=== PATIENT | male | born 1965 | race Caucasian/White ===

== ENCOUNTER 2021-12-19 00:51 | Day surgery (SDC) | payer OTHER, SELFPAY ==
[2021-12-18 08:19] VITALS: BMI 31.4
--- NOTE | 2021-12-18 08:28 | PC.NURSE ---
Report to the Outpatient Waiting Room, entrance under the green pavilion located off [facility], at time 1100 on date 12/19/21. OR Time: 1300. - You and your visitor will be asked a series of questions to screen for COVID 19 for your protection. - A mask is required within the hospital. One visitor will be allowed to accompany the patient into the hospital. Patients visitor will be instructed to remain with patient at all times or leave the building. We will allow the visitor to come back to the postoperative area when patient is ready. Preoperative COVID Testing Requirements: No COVID Test needed if: (proof is required; if not received patient will have Rapid Test prior to entry) - Patient has received COVID Vaccine at least 14 days prior to procedure date or - Patient has positive COVID test result within last 90 days of surgery date. COVID Test needed if above criteria is not met Patients may have clear liquids (water, carbonated beverages, clear teas, apple juice) until 3 hours prior to surgery with a maximum of 20 ounces. - No food from midnight until time of surgery Take the following medications with a SIP of water the morning of surgery: NONE Medications to discontinue per physician: VITAMINS/SUPPLEMENTS Date to take last dose: NONE UNTIL AFTER SURGERY Please no make-up, nail egyptian, hairspray, perfume, deodorant, or body powder the day of surgery. No jewelry (including any body piercings) or valuables the day of surgery, leave them at home. Please take a shower or bath the night before, or the morning of, surgery with an antibacterial soap. Wear comfortable, loose fitting clothing. HIBICLENS SHOWER - Jewelry must be removed prior to entering the operating room. Rings and piercings that are not removed may be cut off. - The hospital will not accept responsibility for valuables. - Please leave all valuables, including medications, at home the day of surgery. If you are going home after surgery, a licensed dumpcart driver must drive you home. - NO public transportation without another adult. - We recommend that an adult stay with you for 24 hours following discharge. - We also recommend that you do not drive, make important decision, drink alcoholic beverages, or take any drugs that were not prescribed by your health care provider for at least 24 hours after your discharge time. Follow any additional instructions given to you from your surgeon. Telephone instructions given to JESSI LOPEZ and asked if any additional questions and then verbalized understanding. Patient advised to call surgeon office or pre surgery nurse liaison [phone] if any additional questions.
[2021-12-19] VITALS (7 sets, daily range): BP systolic 86–132; BP diastolic 54–84; PULSE 59–79; RESP 12–18; TEMP 36.3–36.6; O2SAT 90–100
[2021-12-19] MEDS: ACETAMINOPHEN 500 MG TABLET 1000 MG PO (11:36)
[2021-12-19] MEDS: KETOROLAC 15 MG/ML VIAL (*BKC) IV PUSH (12:00)
[2021-12-19] MEDS: LACTATED RINGERS 1,000 ML 30 ML IV CONT ×2 (12:00→14:48)
--- NOTE | 2021-12-19 12:48 | WPDANESEPPF ---
Anes - Initial Pre Proc Eval Procedure: Operation Date: 12/19/21 13:00 Proposed Procedures p Right Inguinal Hernia Repair - Trenton Moreau MD Date/Time: 12/19/21 12:48 Surgeon: Trenton Moreau MD Pre Op Diagnosis: Right Ing Hernia Patient Data Age: 56 Gender: M Height: 1.8 m Weight: 98.5 kg Last Vital Signs Temp 36.3 C L 12/19/21 12:09 Pulse 79 12/19/21 12:09 Resp 16 12/19/21 12:09 BP 120/83 12/19/21 12:09 Pulse Ox 100 12/19/21 12:09 Allergies Allergy/AdvReac Type Severity Reaction Status Date / Time No Known Allergies Allergy Verified 12/19/21 12:08 Home Medications Medication Instructions Recorded Confirmed Type multivitamin 1 tablet PO DAILY 12/09/21 12/19/21 History magnesium chloride 71.5 mg 71.5 mg PO DAILY 12/16/21 12/19/21 History (magnesium chloride) tablet,delayed release Patient hx anesthesia problems: none Family hx anesthesia problems: none Results Review: All pre-operative results and documents have been reviewed as part of the pre-operative evaluation. [facility] Past Medical History Medical History (Updated 12/19/21 @ 12:48 by Castillo Shin MD) Diverticulitis Dysrhythmia, cardiac Unknown family medical history Patient is adopted Surgical History Surgical History (Updated 12/19/21 @ 12:49 by Castillo Shin MD) H/O hernia repair History of colon resection History of creation of ostomy Social History Social History Smoking status: Never smoker Alcohol intake: current Alcohol use details: 2/MONTH Substance use: never Substance use type: does not use Living arrangements: with family Additional occupation/education comments: SELF EMPLOYED Spiritual care concerns: No Anes - Eval Final PreProcedure Day of Procedure 12/19/21 12:48 Patient weight: obese Heart: regular rate and rhythm Lungs: clear to auscultation Airway: Mallampati scale class II Neurological: alert and oriented Last oral intake: >/= 8 hours ASA classification: II Emergent: no Anesthetic plan: proceed Anesthesia type and monitoring: general GIVS and standard monitoring Results Review: All pre-operative results and documents have been reviewed as part of the pre-operative evaluation. Informed Consent: The patient's anesthetic plan and its attendant risks and benefits were discussed with the patient/family/POA. Questions were solicited and answers provided to the satisfaction of the patient/family/POA.
--- NOTE | 2021-12-19 12:57 | WPDHPUPDATE1 ---
History and Physical Update Update Date/Time: 12/19/21 12:57 History and Physical has been reviewed, including an updated exam of the patient. There are NO changes in the patient's condition. Risks, benefits, and alternatives have been discussed and questions answered. Patient agrees to proceed with procedure.
[2021-12-19] MEDS: ceFAZolin 2 GM/D5W 50 ML 2 GM/50 ML BAG IVPB (13:07)
--- NOTE | 2021-12-19 14:51 | P.OP_ITS ---
Procedure Note - Detailed Date of Procedure 12/19/21 Pre-op Diagnosis Right Ing Hernia Post-op Diagnosis Same Procedure Performed Right inguinal hernia repair with large PerFix plug a light Surgeon Trenton Moreau MD Podiatric Medicine Doctor [place] BUSTOS Anesthesia General and Local (0.25% Marcaine with epinephrine) Indications Patient had noticed a bulge in the right groin which would cause discomfort. He has a history of a previous left inguinal hernia. He was seen in the office and found to have a reducible right inguinal hernia. He is taken to surgery now for repair Findings Showed an indirect right inguinal hernia that had small bowel within the hernia. No direct hernia was noted. Description of Procedure The patient was taken to surgery and IV sedation was administered. Prep and drape was carried out. The proposed incision was marked on the skin. Local anesthetic was infiltrated into the skin and the deeper subcutaneous tissues. Incision was made dissection was carried down through subcutaneous and through Rogers's fascia. We dissected down to the external oblique aponeurosis and exposed it. The external ring was exposed as well. Local was infiltrated deep to the external oblique aponeurosis in the area of the spermatic cord and inguinal canal contents. The aponeurosis was opened laterally and extended medially through the external ring. Care was taken to avoid injury to the ilioinguinal nerve which was left attached to the cord. We then mobilized the cord medially on around a Manzanola drain. The cord was further mobilized back to the internal ring. The hernia was not immediately obvious. We did a fair amount of dissection the cord and then eventually found the hernia sac fairly near the internal ring. Once it was dissected however it was a fairly wide- based hernia and had small bowel in the hernia sac. There was a lot of cremasteric fiber of the cord that was divided with the cautery. We dissected out the hernia sac and dissected back to a high dissection. The sac was not entered. It was dunked into the retroperitoneum. A large PerFix plug light was then placed in the defect. The edges were sutured to the transversalis fascia with interrupted 3 0 Vicryl suture. Then 3-0 Vicryl suture were used to partially close the hernia defect. The patch was then cut to the appropriate size and placed over the inguinal canal floor. The lateral leaves passed beyond the cord. The 1st piece of Xaracoll was then placed over the patch. We closed the external oblique aponeurosis with interrupted 3-0 Vicryl suture. The 2nd piece of Xaracoll was then placed over the external oblique aponeurosis. Rogers's fascia was closed with interrupted 3-0 Vicryl suture. The last pieces Xaracoll was placed in the subcutaneous. The skin was loosely approximated with 4-0 Vicryl subcuticular interrupted skin suture. The skin was finally closed with a running 4-0 Monocryl skin suture. The wound was dressed with Exofin surgical adhesive. The patient was awakened and taken to outpatient surgery in good condition. Sponge and needle counts were correct x2. Implants Large PerFix plug light with patch, Xaracoll Estimated Blood Loss -5 Drains No Packing No Pathology None sent Complications No immediate complications Condition Stable Disposition Same day
== END 2021-12-19 16:43 | disposition home or self-care (01) ==
PROVIDERS: PCP Physician Assistant; Visit Provider Surgery
PROC: (CPT 49505; principal; 2021-12-19 13:00)
DX: K40.90 Unilateral inguinal hernia, without obstruction or gangrene, not specified as recurrent (principal); Z90.49 Acquired absence of other specified parts of digestive tract; E66.9 Obesity, unspecified; Z68.30 Body mass index [BMI] 30.0-30.9, adult
CPT/HCPCS: 49505; A9270; C1781; J0690; J1100; J1885; J2250; J2405; J2704; J7120

== ENCOUNTER 2022-06-25 09:51 | Outpatient (CLI) | payer OTHER, SELFPAY ==
--- NOTE | ~2022-06-25 | CT_ITS ---
EXAMINATION: CT abdomen pelvis wo con DATE: 06/25/2022 10:04 INDICATION: Right lower quadrant ventral hernia TECHNIQUE: Computed tomography (CT) of the abdomen and pelvis was performed without intravenous contr ast. The dose-length product was 995.27 mGy-cm. Automated exposure control and iterative reconstructi on technique were employed. COMPARISON: CT dated 03/27/2010 FINDINGS: There is bibasilar atelectasis. Heart size normal. No significant pleural or pericardial ef fusion. There is a right lower inguinal hernia containing nonobstructed small bowel. Gallstones. There is a 1.3 cm exophytic left renal cyst posteriorly. There are nonobstructing bilater al renal stones. The liver, spleen, adrenal glands are unremarkable. There is a periumbilical fat-con taining hernia. Nonobstructive bowel gas pattern. No abnormal pelvic masses or fluid collections. There is mild osteo arthritis of the hips. Mild lower thoracic and lumbar spondylosis. IMPRESSION: 1. Right inguinal hernia containing nonobstructed small bowel. 2: Periumbilical hernia containing fat. 3: Cholelithiasis. 4: Nonobstructing bilateral nephrolithiasis. Reviewed, dictated and finalized at location B.
== END 2022-06-25 09:52 ==
LOC: MICIMG 09:52
PROVIDERS: PCP Physician Assistant; Visit Provider Surgery
DX: K43.9 Ventral hernia without obstruction or gangrene (principal); K42.9 Umbilical hernia without obstruction or gangrene; K80.20 Calculus of gallbladder without cholecystitis without obstruction; N20.0 Calculus of kidney
CPT/HCPCS: 74176

== ENCOUNTER 2022-08-27 01:28 | Day surgery (SDC) | payer OTHER, SELFPAY ==
[2022-08-18 10:29] VITALS: BMI 30.2
--- NOTE | 2022-08-18 10:32 | PC.NURSE ---
Report to the Outpatient Waiting Room, entrance under the green pavilion located off [facility], at time 1030 on date 08/27/22. Planned Procedure Time: 1230. Time changes happen often and if your time is changed the preop area will call you the afternoon before. - You and your visitor will be asked to self-screen and do not enter if you have any COVID symptoms. - Only one visitor is requested with a max of two and NO children visitors are allowed at this time. - The patient visitor may be requested to leave or wait in car when not with patient due to distancing restrictions. - A mask is optional within the hospital. Patients may have clear liquids (water, carbonated beverages, clear teas, apple juice) until 3 hours prior to surgery with a maximum of 20 ounces. - No food from midnight until time of surgery Take the following medications with a SIP of water the morning of surgery: METOPROLOL Medications to discontinue per physician: VITAMINS/SUPPLEMENTS Date to take last dose: 08/23/22 Please no make-up, nail romansh, hairspray, perfume, deodorant, or body powder the day of surgery. No jewelry (including any body piercings) or valuables the day of surgery, leave them at home. Please take a shower or bath the night before, or the morning of, surgery with an antibacterial soap (HIBICLENS). Wear comfortable, loose fitting clothing. - Jewelry must be removed prior to entering the operating room. Rings and piercings that are not removed may be cut off. - The hospital will not accept responsibility for valuables. - Please leave all valuables, including medications, at home the day of surgery. If you are going home after surgery, a licensed cdl truck driver must drive you home. - NO public transportation without another adult if you receive anesthesia. - We recommend that an adult stay with you for 24 hours following discharge. - We also recommend that you do not drive, make important decision, drink alcoholic beverages, or take any drugs that were not prescribed by your health care provider for at least 24 hours after your discharge time. Follow any additional instructions given to you from your surgeon. If you or anyone in your household have experienced Covid symptoms in the past week, please notify your surgeon or the nurse liaison at the phone number below for possible testing. Telephone instructions given to PT - JESSI LOPEZ and asked if any additional questions and then verbalized understanding. Patient advised to call surgeon office or pre surgery nurse liaison [phone] if any additional questions.
--- NOTE | 2022-08-26 13:33 | PM.SD2 ---
Same Day Admit/Disch: HPI History of Present Illness Chief complaint: recurrent inguinal hernia and umbilical hernia Narrative: Raymond Singh is a 57 year old male Who had a right inguinal hernia repaired with plug and patch last November. He developed a recurrent right inguinal bulge. He was seen in the office and found to have a recurrent right inguinal hernia. He was also noted to have an umbilical hernia. After discussion, he is taken to surgery now as an outpatient for repair of his recurrent right inguinal hernia and repair of the umbilical hernia. Both hernias are to be repaired with mesh. [facility] Past Medical History Medical History Diverticulitis Dysrhythmia, cardiac Unknown family medical history Patient is adopted Surgical History Surgical History H/O hernia repair History of colon resection History of creation of ostomy History of inguinal hernia repair right side 12/19/21 Social History Social History Smoking status: Never smoker Alcohol intake: current Drinks per week: 2 Alcohol use details: 2/MONTH Substance use: never Substance use type: does not use Living arrangements: with family Additional occupation/education comments: SELF EMPLOYED Spiritual care concerns: No Same Day Admit/Disch: Med Pre-admit Medications Home Medications Medication Instructions Recorded Confirmed Type multivitamin 1 tablet PO DAILY 12/09/21 08/18/22 History magnesium chloride 71.5 mg 71.5 mg PO DAILY 12/16/21 08/18/22 History (magnesium chloride) tablet,delayed release (Slow-Mag) metoprolol succinate 25 mg 25 mg PO DAILY 06/19/22 08/18/22 History tablet,extended release 24 hr hydrocodone 5 mg-acetaminophen 325 1 - 2 tablet PO Q6H PRN pain #15 08/27/22 Rx mg tablet tabs ketorolac 10 mg tablet 10 mg PO Q6H 4 days #16 tabs 08/27/22 Rx Exam Const: General: comfortable, no acute distress, alert and awake HENMT: Head: normocephalic and atraumatic Mouth: Yes Normal oral and palatal mucosa present Eyes: Conjunctivae: conjunctivae normal Pupils: Equal, round and reactive pupils present EOM: EOMs intact bilaterally Neck: Neck: normal visual inspection, no lymphadenopathy and nontender Resp: Effort & Inspection: normal respiratory effort Auscultation: clear to auscultation bilaterally Cardio: Rate: regular rate Rhythm: regular rhythm Heart sounds: no gallops, no murmurs and no rubs GI: Inspection: non-distended, scar and visible herniation ( Umbilical) GI Palp: Yes Soft to palpation, No Tenderness to palpation present (GI), No Hepatomegaly present, No Splenomegaly present and Yes Hernia present ( small umbilical bulge mostly on the right of the umbilicus. Reducible) : Male General Exam: Yes hernia ( right inguinal bulge just above the previous scar, reducible.) Penis: Yes normal penis Scrotum: scrotum normal Testes: Testes normal Skin: Lesions: no lesions Rashes: no rashes Neuro: General: no focal motor deficits and CN's II-XI intact bilaterally Cranial nerves: Yes Equal, round and reactive pupils present, Yes Bilaterally intact EOM present, Yes facial symmetry and Yes Midline tongue present Speech: normal speech Motor exam (neuro): 5/5 motor strength present throughout and Motor abnormalities not present Extrem: General: no clubbing, cyanosis or edema and edema Psych: Affect: normal affect Thought process: Normal thought process present Insight: Good insight present (Psych) DS: Summary Time Spent with Patient Time attestation: Total time spent providing and/or coordinating discharge services: DS: Admitting Diagnosis Discharge Date 08/27/2022 Admitting Diagnosis recurrent right inguinal hernia -reducible. Plan to proceed with repair under anesthesia with mesh. The procedure was discussed including the
[2022-08-27 10:31] VITALS: BP 138/96; PULSE 64; RESP 18; TEMP 36.2; O2SAT 100
--- NOTE | 2022-08-27 10:47 | WPDHPUPDATE1 ---
History and Physical Update Update Date/Time: 08/27/22 10:47 History and Physical has been reviewed, including an updated exam of the patient. There are NO changes in the patient's condition. Risks, benefits, and alternatives have been discussed and questions answered. Patient agrees to proceed with procedure.
[2022-08-27] MEDS: LACTATED RINGERS 1,000 ML 30 ML IV CONT ×2 (11:00→16:45)
[2022-08-27] MEDS: KETOROLAC 15 MG/ML VIAL (*BKC) IV PUSH (11:01)
[2022-08-27] MEDS: ACETAMINOPHEN 500 MG TABLET 1000 MG PO (11:01)
--- NOTE | 2022-08-27 11:59 | WPDANESEPPF ---
Anes - Initial Pre Proc Eval Procedure: Operation Date: 08/27/22 12:30 Proposed Procedures p Repair Recurrent Right Inguinal Hernia Repair, - Trenton Moreau MD s Umbilical Hernia Repair with Mesh - Trenton Moreau MD Date/Time: 08/27/22 11:59 Surgeon: Trenton Moreau MD Pre Op Diagnosis: recurrent inguinal hernia and umbilical hernia Patient Data Age: 57 Gender: M Height: 1.8 m Weight: 99 kg Last Vital Signs Temp 36.2 C L 08/27/22 10:31 Pulse 64 08/27/22 10:31 Resp 18 08/27/22 10:31 BP 138/96 H 08/27/22 10:31 Pulse Ox 100 08/27/22 10:31 O2 Del Method Room Air 08/27/22 10:31 Allergies Allergy/AdvReac Type Severity Reaction Status Date / Time No Known Allergies Allergy Verified 08/27/22 11:07 Home Medications Medication Instructions Recorded Confirmed Type multivitamin 1 tablet PO DAILY 12/09/21 08/18/22 History magnesium chloride 71.5 mg 71.5 mg PO DAILY 12/16/21 08/18/22 History (magnesium chloride) tablet,delayed release (Slow-Mag) metoprolol succinate 25 mg 25 mg PO DAILY 06/19/22 08/18/22 History tablet,extended release 24 hr Patient hx anesthesia problems: none Family hx anesthesia problems: none Results Review: All pre-operative results and documents have been reviewed as part of the pre-operative evaluation. [facility] Past Medical History Medical History Diverticulitis Dysrhythmia, cardiac Unknown family medical history Patient is adopted Surgical History Surgical History H/O hernia repair History of colon resection History of creation of ostomy History of inguinal hernia repair right side 12/19/21 Social History Social History Smoking status: Never smoker Alcohol intake: current Drinks per week: 2 Alcohol use details: 2/MONTH Substance use: never Substance use type: does not use Living arrangements: with family Additional occupation/education comments: SELF EMPLOYED Spiritual care concerns: No Anes - Eval Final PreProcedure Day of Procedure 08/27/22 11:59 Patient weight: obese Heart: regular rate and rhythm Lungs: clear to auscultation Airway: Mallampati scale class II Neurological: alert and oriented Last oral intake: >/= 8 hours ASA classification: II Emergent: no Anesthetic plan: proceed Anesthesia type and monitoring: general GIVS and standard monitoring Results Review: All pre-operative results and documents have been reviewed as part of the pre-operative evaluation. Informed Consent: The patient's anesthetic plan and its attendant risks and benefits were discussed with the patient/family/POA. Questions were solicited and answers provided to the satisfaction of the patient/family/POA.
[2022-08-27] MEDS: ceFAZolin 2 GM/D5W 50 ML 2 GM/50 ML BAG IVPB (13:07)
[2022-08-27] MEDS: LIDO 1%/EPINEPHRINE/PF 1:200,000 30 ML VIAL 60 ML XX (13:52)
[2022-08-27 16:12] VITALS: BP 117/79; PULSE 67; RESP 16; O2SAT 95
--- NOTE | 2022-08-27 16:37 | W.PM.PROC2 ---
Procedure Note - Detailed Date of Procedure 08/27/22 Pre-op Diagnosis recurrent inguinal hernia and umbilical hernia Post-op Diagnosis Other (Recurrent right inguinal hernia, periumbilical incisional hernia) Procedure Performed Repair periumbilical incisional hernia with mesh, repair recurrent right inguinal hernia with PerFix Light plug and patch. Surgeon Trenton Moreau MD Business Objects Report Developer Danielle BUSTOS, Renee BUSTOS Anesthesia General (G IV S), Local (2% lidocaine with epinephrine) and Other (Xaracoll for inguinal hernia) Indications Patient had a right inguinal hernia repair last November. He noticed bulge and some discomfort in the right groin. He was seen in the office and found to have not only a recurrent right inguinal hernia but also bulge in the umbilicus. He also has a long midline scar from previous colon resection in 2008. He is taken to surgery now for repair of the recurrent right inguinal hernia as well as repair of the periumbilical hernia both with mesh. Findings The recurrent right inguinal hernia was an indirect hernia it was a fairly wide defect. There was extremely heavy scarring and anatomy was difficult to delineate. All the previous mesh including the plug was removed. The umbilical hernia actually was in incisional hernia and did not involve the stalk of the umbilicus. This was a small defect as well and was repaired with a 4.[address] underlay mesh patch. Description of Procedure Patient was taken to surgery and anesthesia was introduced. The abdomen as well as the right inguinal region were prepped and draped. We started with the umbilical surgery. The proposed incision was marked along the old scar that ran on the right side of the umbilicus. I marked this area then infiltrated local in the area of the anticipated incision. Incision was made and dissection was carried down through the skin and subcutaneous. We dissected towards the umbilicus and then saw the hernia defect. It was a little more lateral and at this point was evident this was an incisional hernia. I did go ahead and dissect circumferentially around the hernia sac and dissected around the umbilical stalk. I divided the umbilical stalk and then undermined some of the subcutaneous around the hernia defect. I excised some of the hernia sac and then enlarged the hernia slightly so that I could place a finger in the abdomen. Once I did this I was able to check for any additional hernias or other abnormalities that would impede our repair. None were found. I then used a 4.[address] patch. This was placed in the defect. I then placed cranial and caudal transfascial sutures of 0 Ethibond. These were positioned such that they would advance the edges of the hernia towards 1 another once tied. They did have the desired effect. I then removed the strap to the Ventralex ST. I used a [id number] 0 Ethibond suture to close the hernia defect. Each of these stitches also involved bit of mesh. This repair looked satisfactory. I infiltrated additional local all around the repair. I then sutured the umbilical skin back to the fascia with 3-0 Vicryl suture. The skin was loosely approximated with subcuticular interrupted 4-0 Vicryl suture. The skin was finally closed with a running 4-0 Monocryl skin suture. We then quarantine this wound and I turned my attention to the right inguinal scar and recurrent right inguinal hernia. I khushi around the scar in an elliptical fashion. I then infiltrated local in the area of the scar and in the subcutaneous. I excised the old scar and discarded it. We then dissected through the subcutaneous and through Rogers's fascia. I continued this dissection and found some very dense scarring in the area of the external oblique and inguinal canal. I was able to find a plane that I could separate the subcutaneous from the external oblique aponeurosis. None the less it seemed that some of the external oblique aponeurosis
[2022-08-27 16:40] VITALS: BP 118/69; PULSE 64; RESP 20
[2022-08-27 17:10] VITALS: BP 135/87; PULSE 72; RESP 20
[2022-08-27 17:40] VITALS: BP 143/86; PULSE 64; RESP 20
[2022-08-27 18:10] VITALS: BP 143/90; PULSE 70; RESP 20
== END 2022-08-27 18:30 | disposition home or self-care (01) ==
PROVIDERS: PCP Physician Assistant; Visit Provider Surgery
PROC: (CPT 49520; principal; 2022-08-27 12:30)
PROC: (CPT 49520; 2022-08-27 12:30)
DX: K40.91 Unilateral inguinal hernia, without obstruction or gangrene, recurrent (principal); K43.2 Incisional hernia without obstruction or gangrene; I49.9 Cardiac arrhythmia, unspecified; E66.9 Obesity, unspecified; Z68.30 Body mass index [BMI] 30.0-30.9, adult
CPT/HCPCS: 49520; 49560; 49568; 88300; A9270; C1781; J0690; J1885; J2250; J2270; J2405; J2704; J3010; J7120

== ENCOUNTER 2023-06-25 10:09 | Emergency (ER) | payer OTHER, SELFPAY ==
--- NOTE | ~2023-06-25 | CT_ITS ---
EXAMINATION: CT abdomen pelvis w con DATE: 06/25/2023 11:00 INDICATION: Right lower quadrant abdominal pain TECHNIQUE: Computed tomography (CT) of the abdomen and pelvis was performed with 100 mL Omnipaque-350 intravenous contrast. Automated exposure control and iterative reconstruction technique were employe d. The dose-length product was 802.52 mGy-cm. COMPARISON: 06/25/2022 FINDINGS: Dependent and discoid atelectasis in the bilateral lower lobes. Heart size is normal. No pericardial or pleural effusion. Calcified gallstones in the dependent aspect of the otherwise normal gallbladder . Liver, spleen, pancreas, bilateral adrenal glands are normal. Bilateral renal cysts, the largest on the left measuring up to 1.8 cm. 5 x 3 mm at least partially obstructing stone at the right ureterov esicular junction with mild right hydroureteronephrosis. No other evident urolithiasis. Bladder is no rmal. There are few scattered colonic diverticula without adjacent inflammatory change to suggest div erticulitis. Small bowel and appendix are normal. Postoperative change of prior umbilical and right i nguinal hernia repairs. No free intraperitoneal gas or fluid. No pathologically enlarged abdominal or pelvic lymphadenopathy. Severe disc height loss with mild degenerative endplate changes at L5-S1. Mi ld spondylosis more cephalad lumbar and lower thoracic spine. Chronic appearing likely pathologic mil d anterior wedging of T11 and T12. IMPRESSION: 1. At least partially obstructing 5 x 3 mm stone at the right ureterovesicular junction with mild rig ht hydroureteronephrosis. 2. Cholelithiasis. 3. Change of prior umbilical and right inguinal hernia repairs. Reviewed, dictated and finalized at location A. IMPRESSION: 1. At least partially obstructing 5 x 3 mm stone at the right ureterovesicular junction with mild right hydroureteronephrosis. 2. Cholelithiasis. 3. Change of prior umbilical and right inguinal hernia repairs.
[2023-06-25 10:09] VITALS: BP 111/71; PULSE 65; RESP 16; TEMP 36.6; O2SAT 98
[2023-06-25] MEDS: SODIUM CHLORIDE 0.9% IV 1,000 ML 999 ML IV CONT ×2 (10:38→11:33)
[2023-06-25] MEDS: ONDANSETRON INJ 4 MG/2 ML VIAL IV PUSH (10:38)
[2023-06-25] MEDS: fentaNYL CITRATE INJ (*CRX) 100 MCG/2 ML VIAL 50 MCG IV PUSH (10:38)
--- NOTE | 2023-06-25 10:41 | ED.GENADULT ---
HPI - General Adult General Chief complaint: Abdominal Pain Stated complaint: ABD PAIN Time Seen by Provider: 06/25/23 10:18 History of Present Illness HPI narrative: Raymond Singh is a 58 y/o male with PMHx of hernia repair surgeries with partal colon removal, presents today with complaints of right lower abdominal pain with severe pain that started about 1 hour ago. Last BM this morning and was small, reports of nausea/ has not vomiting he last had anything to eat about 12 hours ago. Related Data Home Medications Medication Instructions Recorded Confirmed multivitamin 1 tablet PO DAILY 12/09/21 09/25/22 magnesium chloride 71.5 mg 71.5 mg PO DAILY 12/16/21 09/25/22 (magnesium chloride) tablet,delayed release (Slow-Mag) metoprolol succinate 25 mg 25 mg PO DAILY 06/19/22 09/25/22 tablet,extended release 24 hr Allergies Allergy/AdvReac Type Severity Reaction Status Date / Time No Known Allergies Allergy Verified 09/25/22 09:10 Review of Systems Review of Systems: CONSTITUTIONAL: Denies fever, chills EYES: Denies visual changes, redness, or discharge. ENT: Denies rhinorrhea, congestion, sore throat, or otalgia. CARDIOVASCULAR: Denies chest pain, palpitations, or edema. RESPIRATORY: Denies cough or dyspnea. GASTROINTESTINAL:Complains of severe right lower pain, with nausea, no vomiting, or diarrhea. GENITOURINARY: Denies dysuria or hematuria. SKIN: Denies rash or itching. MUSCULOSKELETAL: Denies back pain, joint pain, or myalgia. NEUROLOGIC: Denies headache, numbness, dizziness, or weakness. PSYCHIATRIC: Denies anxiety or depression. [facility] Past Medical History Medical History Diverticulitis Dysrhythmia, cardiac Unknown family medical history Patient is adopted Surgical History Surgical History H/O hernia repair History of colon resection History of creation of ostomy History of inguinal hernia repair right side 12/19/21 History of inguinal hernia repair recurrent rt ing hernia, rep umb hernia w/ mesh performed 08/27 Social History Social History Smoking status: Never smoker Alcohol intake: current Drinks per week: 2 Alcohol use details: 2/MONTH Substance use: never Substance use type: does not use Living arrangements: with family Occupation/Education: occupation Additional occupation/education comments: SELF EMPLOYED Spiritual care concerns: No Exam Narrative: GENERAL: Diaphoretic, appears uncomfortable, well-nourished, and in no acute distress. HEAD: Normocephalic, atraumatic. EYES: PERRLA and EOMI. ENT: Nares clear, no rhinorrhea or epistaxis. Mucous membranes moist. Oropharynx without tonsillar hypertrophy exudate or other lesions. NECK: Supple. No adenopathy or masses. No carotid bruits or JVD CHEST: Clear to auscultation. No respiratory distress. No wheezes rales or rhonchi HEART: Regular rate and rhythm. No murmur heard. Normal peripheral pulses. ABDOMEN: Soft, painful with palpation to the right lower quadrant, nondistended, hypoactive bowel sounds EXTREMITIES: Normal range of motion. No edema. SKIN: Warm, dry, no rash. NEURO: No focal deficits. Alert and oriented x3. PSYCH: Normal mood and affect. Course Vital Signs Vital signs: Vital Signs Temperature 36.6 C 06/25/23 10:09 Pulse Rate 65 06/25/23 10:09 Respiratory Rate 16 06/25/23 10:09 Blood Pressure 111/71 06/25/23 10:09 Pulse Oximetry 98 06/25/23 10:09 Oxygen Delivery Room Air 06/25/23 10:09 Temperature 36.6 C 06/25/23 10:09 Pulse Rate 57 L 06/25/23 11:31 Respiratory Rate 17 06/25/23 11:31 Blood Pressure 135/95 H 06/25/23 11:31 Pulse Oximetry 100 06/25/23 11:31 Oxygen Delivery Room Air 06/25/23 10:09 Medical Decision Making MDM Narrative Medical decision making narrative: On exa
[2023-06-25 10:51] LABS: Basophils Absolute Auto 0.1 K/mm3 (0.0-0.1); Basophils Percent Auto 0.7 % (0.2-1.2); Eosinophils Absolute Auto 0.2 K/mm3 (0-0.3); Eosinophils Percent Auto 3.3 % (0-4.4); Hematocrit 43.7 % (42.0-52.0); Hemoglobin 15.1 g/dL (14.0-18.0); Immature Granulocyte Absolute 0.02 K/mm3 (0.00-0.031); Immature Granulocyte Percent A 0.3 % (0-0.5); Lymphocytes Absolute Auto 2.81 K/mm3 (0.9-3.2); Mean Corpuscular HGB Conc 34.6 g/dl (32-36); Mean Corpuscular Hemoglobin 31.1 pg (26-34); Mean Corpuscular Volume 89.9 fl (80-100); Mean Platelet Volume 9.7 fl (7.4-10.4); Monocytes Absolute Auto 0.6 K/mm3 (0.1-0.6); Monocytes Percent Auto 8.1 % (2.6-8.5); Neutrophils Absolute Auto 3.3 K/mm3 (1.3-6.7); Neutrophils Percent Auto 47.6 % (45.5-73.1); Platelet Count Result 252 k/mm3 (150-375); Red Blood Count 4.86 M/mm3 (4.6-6.20); Red Cell Distribution Width 11.9 % (11.5-14.5)
[2023-06-25 10:59] LABS: Estimated Glomerular Filt Rate > 60
[2023-06-25 11:05] LABS: Lactic Acid Reflex 2.5 mmol/L (0.7-2.0)
[2023-06-25 11:06] LABS: Alanine Aminotransferase 24 U/L (6-50); Albumin Level 4.4 g/dL (3.5-5.1); Alkaline Phosphatase 59 U/L (38-126); Anion Gap 11 mmol/L (8-16); Aspartate Amino Transferase 34 U/L (17-59); Bilirubin,Total 1.3 mg/dL (0.2-1.3); Blood Urea Nitrogen 18 mg/dL (9-20); Calcium 9.2 mg/dL (8.4-10.2); Carbon Dioxide 24 mmol/L (22-30); Chloride 104 mmol/L (98-107); Estimated Glomerular Filt Rate > 60; Glucose 134 mg/dL (65-110); Sodium 139 mmol/L (137-145)
[2023-06-25 11:18] VITALS: BP 157/96; PULSE 68; RESP 21; O2SAT 100
[2023-06-25 11:31] VITALS: BP 135/95; PULSE 57; RESP 17; O2SAT 100
[2023-06-25] MEDS: KETOROLAC 30 MG/ML VIAL (*BKC) IV PUSH (11:33)
[2023-06-25] MEDS: TAMSULOSIN HCL 0.4 MG CAPSULE PO (11:34)
[2023-06-25 12:55] LABS: Appearance Urine Clear (Clear); Bacteria Urine None Seen /hpf; Bilirubin Urine Negative (Negative); Blood Urine 3+ (Negative); Color Urine Yellow (Yellow); Glucose Urine UA Negative (Negative); Ketones Urine Trace mg/dL (Negative); Leukocyte Esterase Ur Negative LEU/UL (Negative); Nitrate Urine Negative (Negative); Non Pathogenic Casts 0-2; Protein Urine Negative (Negative); RBC Urine 51-100 /hpf (0-2); Specific Grav Ur 1.036 (1.001-1.035); Squamous Epithelial Cell Urine None seen /hpf (Few); Urobilinogen Urine 0.2 mg/dL (<2.0); WBC Urine 0-5 /hpf; pH Urine 6.5 (5.0-9.0)
[2023-06-25 12:56] LABS: Add Urine Microscopic? YES
[2023-06-25 12:57] VITALS: BP 133/80; PULSE 70; RESP 16; O2SAT 99
[2023-06-25 13:48] LABS: Reflex Lactic Acid Yes or No Add Lactic
== END 2023-06-25 13:05 | disposition home or self-care (01) ==
PROVIDERS: Emergency Provider Nurse Practitioner Family; PCP Physician Assistant
DX: N13.2 Hydronephrosis with renal and ureteral calculous obstruction (principal); Z90.49 Acquired absence of other specified parts of digestive tract; K80.20 Calculus of gallbladder without cholecystitis without obstruction
CPT/HCPCS: 36415; 74177; 80053; 81001; 83605; 85025; 96361; 96374; 96375; 99284; A4565; A9270; J1885; J2405; J3010; J7030; Q9967